=== PATIENT | female | born 1970 | race Caucasian/White ===

== ENCOUNTER 2022-02-23 13:27 | Emergency (ER) | payer OTHER, SELFPAY ==
--- NOTE | ~2022-02-23 | XR_ITS ---
EXAMINATION:XR foot RT 2V VIEWS ACQUIRED: Frontal lateral and oblique CLINICAL INFORMATION: Crush injury COMPARISON: None available at the time of this dictation. FINDINGS: There is no evidence of acute fracture or dislocation. Intertarsal, tarsometatarsal, metatarsophalangeal and interphalangeal joints are intact. Surrounding soft tissues is normal. , There are no calcaneal spurs. XR/XR foot RT 2V IMPRESSION: No fracture or dislocation.
[2022-02-23 15:24] VITALS: BP 149/70; PULSE 63; RESP 18; TEMP 36.7; O2SAT 99; BMI 30.9
--- NOTE | 2022-02-23 15:28 | ED.WOUNDLAC ---
HPI - Wound/Laceration General Chief Complaint: Wound/Laceration <Sascha Yanez MD - Last Filed: 02/23/22 15:29> Stated Complaint: r toe inj <Sascha Yanez MD - Last Filed: 02/23/22 15:29> Time Seen by Provider: 02/23/22 17:27 <Sascha Yanez MD - Last Filed: 02/23/22 15:29> Source: patient <ROMELIA Alvarado - Last Filed: 02/23/22 18:30> Mode of arrival: ambulatory <ROMELIA Alvarado - Last Filed: 02/23/22 18:30> Limitations: no limitations <ROMELIA Alvarado - Last Filed: 02/23/22 18:30> History of Present Illness HPI narrative: Pt is an otherwise healthy 51 year old female who presents to the ED for evaluation of a R 1st toe injury and toe pain. She states that she was moving a couch earlier today when she dropped it directly onto her right 1st toe. She currently has pain over her nail that radiates into her toe. She cleaned the toe and applied a homemade pressure dressing. She denies numbness/tingling, parenthesias, and an inability to bear weight. She denies any other injuries or concerns at this time. She reports an UTD tetanus vaccine. <ROMELIA Alvarado - Last Filed: 02/23/22 18:30> Onset (ago): hour(s) (6) <ROMELIA Alvarado - Last Filed: 02/23/22 18:30> Extremity Location: right: foot <ROMELIA Alvarado - Last Filed: 02/23/22 18:30> Body four view annotation: 1. Draining subungual hematoma <Sascha Yanez MD - Last Filed: 02/23/22 15:29> 1. Draining subungual hematoma <ROMELIA Alvarado - Last Filed: 02/23/22 18:30> Place: home <ROMELIA Alvarado - Last Filed: 02/23/22 18:30> Patient tetanus UTD: Yes <ROMELIA Alvarado - Last Filed: 02/23/22 18:30> Context: accidental and crush injury <ROMELIA Alvarado - Last Filed: 02/23/22 18:30> Associated symptoms: pain <ROMELIA Alvarado - Last Filed: 02/23/22 18:30> Treatments prior to arrival: bandage <ROMELIA Alvarado - Last Filed: 02/23/22 18:30> Related Data Home Medications: Previous Rx's Medication Instructions Recorded cephalexin 500 mg capsule 500 mg PO Q6H 7 days #28 caps 02/23/22 ibuprofen 800 mg tablet 800 mg PO Q8H PRN pain #14 tabs 02/23/22 tramadol 50 mg tablet 50 mg PO Q8H PRN pain #14 tabs 02/23/22 <Sascha Yanez MD - Last Filed: 02/23/22 15:29> Allergies/Adverse Reactions: Allergies Allergy/AdvReac Type Severity Reaction Status Date / Time shellfish derived Allergy Mild HIVES Unverified 01/04/20 15:55 [SHELLFISH DERIVED] <Sascha Yanez MD - Last Filed: 02/23/22 15:29> Review of Systems Review of Systems: Constitutional : No Fever, No Chills, Cardiovascular : No Chest Pain, No SOB Respiratory : No Dyspnea Gastrointestinal : No abdominal pain Musculoskeletal : No Joint Swelling Skin : positive skin laceration, No Foreign bodies, No rash, No surrounding erythema Neuro : No Weakness, No Numbness/tingling Psych : No SI/HI/thoughts of self injury <ROMELIA Alvarado - Last Filed: 02/23/22 18:30> Yes all other systems are reviewed and are negative <ROMELIA Alvarado - Last Filed: 02/23/22 18:30> [facility] Past Medical History Attestation statement: The following information was validated with the patient. <ROMELIA Alvarado - Last Filed: 02/23/22 18:30> Source: old records reviewed, obtained from family and nursing notes reviewed <ROMELIA Alvarado - Last Filed: 02/23/22 18:30> Social History Social History: Social History Advance Directives: No Advance Directives Information Provided: No <Sascha Yanez MD - Last Filed: 02/23/22 15:29> Physical Exam Vital Signs: Vital Signs: Last Vital Signs Temp 98.0 F 02/23/22 15:24 Pulse 63 02/23/22 15:24 Resp 18 02/23/22 15:24 BP 149/70 H 02/23/22 15:24 Pulse Ox 99 02/23/22 15:24 O2 Del Method 02/23/22 15:24 BMI result Body Mass Index 30.9 <Sascha Yanez MD - Last Filed: 02/23/22 15:29> Vital Signs: Last Vital Signs Temp 98.0 F 02/23/22 15:24 Pulse 63 02/23/22 15:24 Resp 18 02/23/22 15:24 BP 149/70 H 02/23/22 15:24 Pulse Ox 99 02/23/22 15:24 O2 Del Method 02/23/22 15:24 BMI result Body Mass Index 30.9 vital signs have been reviewed as normal and appeared to be correct. Blood pressure normal Heart rate normal. Respiration rate normal. Temperature normal. Oxygen saturation normal. <ROMELIA Alvarado - Last Filed: 02/23/22 18:30> Appearance: Alert. Oriented X3. No acute distress. Head: Normal external exam. Normocephalic. Atraumatic. Eyes: PERRLA. EOMI. Conjunctiva and sclera normal. Eyelids normal. ENT: Pharynx normal. Uvula midline. Moist mucous membranes. Neck: Normal inspection. Neck supple. FROM. CVS: Normal heart rate and rhythm. Respiratory: No respiratory distress. Painless inspiration. Skin: Skin warm and dry. Normal skin color. Normal skin turgor. No rashes/lesions/lacerations noted. Extremities: Subungual hematoma that has drained present. Right 1st digit nailbed with linear separation on the lateral portion, remains intact to digit. Tenderness to palpation over the right 1st digit nailbed. No lower extremity edema. Extremities exhibit normal range of motion. Neuro: Oriented X 3. No motor deficit. No sensory deficit. Reflexes normal. Normal steady gait. No focal neuro deficits noted. Vascular: + 2 radial pulses/+ 2 distal pedal pulses/+2 dorsalis pedis b/l. Normal cap refill. No cyanosis noted to upper extremity nails and lower extremity toes nails. <ROMELIA Alvarado - Last Filed: 02/23/22 18:30> Course Course Course Narrative: Pt is an otherwise healthy 51 year old female who presents to the ED for evaluation of a R 1st toe injury and toe pain. VSS. R 1st foot digit NVI with presence of draining subungal hematoma. Significant tenderness to palpation to the digit. Washed injured digit with saline and betadine. After cleaning, the hematoma was evaluated and appeared to have already drained therefore further draining was not required. Bacitracin was placed over the nailbed and wrapped with non adhesive dressing and gauze. Discussed keeping the area covered for 24-48 hours and applying bacitracin for infection ppx. Prescription for keflex given for infection ppx. Prescriptions for ibuprofen and tramadol given prn for pain. Discussed plan with pt and advised follow up with PCP in 2-3 days. Pt verbalizes and agrees to plan. <ROMELIA Alvarado - Last Filed: 02/23/22 18:30> Reevaluation(s) Reevaluation #1: split her toe open when she dropped a cough on it <Sascha Ynaez MD - Last Filed: 02/23/22 15:29> Time: 15:29 <Sascha Yanez MD - Last Filed: 02/23/22 15:29> 15:29 <ROMELIA Alvarado - Last Filed: 02/23/22 18:30> MDM - Wound/Laceration Medical Records Attestation: I reviewed the patient's medical records. <ROMELIA Alvarado - Last Filed: 02/23/22 18:30> Imaging Data Right toe x-ray: Attestation: I personally reviewed and interpreted this imaging study as follows: <ROMELIA Alvarado - Last Filed: 02/23/22 18:30> Radiologist's impression: FINDINGS:? There is no evidence of acute fracture or dislocation. Intertarsal, tarsometatarsal, metatarsophalangeal and interphalangeal joints are intact. Surrounding soft tissues is normal. , There are no calcaneal spurs. XR/XR foot RT 2V IMPRESSION: No fracture or dislocation. <ROMELIA Alvarado - Last Filed: 02/23/22 18:30> Discharge Plan Discharge Clinical Impression: Subungual hematoma, Sprain of great toe, right, Traumatic ecchymosis of toe of right foot <Sascha Yanez MD - Last Filed: 02/23/22 15:29> Patient Disposition: Home, Self-Care <Sascha Yanez MD - Last Filed: 02/23/22 15:29> Instructions: Subungual Hematoma (ED), Foot Sprain (ED) <Sascha Yanez MD - Last Filed: 02/23/22 15:29> Prescriptions: New ibuprofen 800 mg tablet 800 mg PO Q8H PRN (Reason: pain) Qty: 14 0RF tramadol 50 mg tablet 50 mg PO Q8H PRN (Reason: pain) Qty: 14 0RF Rx Instructions: May partially fill upon patient request cephalexin 500 mg capsule 500 mg PO Q6H 7 Days Qty: 28 0RF <Sascha Yanez MD - Last Filed: 02/23/22 15:29> Referrals: Physician,Unknown J [Primary Care Provider] - (your pcp) <Sascha Yanez MD - Last Filed: 02/23/22 15:29>
== END 2022-02-23 18:40 | disposition home or self-care (01) ==
PROVIDERS: Emergency Provider Emergency Medicine
DX: S93.501A Unspecified sprain of right great toe, initial encounter (principal); S90.211A Contusion of right great toe with damage to nail, initial encounter; W20.8XXA Other cause of strike by thrown, projected or falling object, initial encounter; Y93.E9 Activity, other interior property and clothing maintenance; Y92.018 Other place in single-family (private) house as the place of occurrence of the external cause; Y99.8 Other external cause status
CPT/HCPCS: 73620; 99283; 99284

== ENCOUNTER 2024-03-13 12:02 | Emergency (ER) | payer OTHER, SELFPAY ==
--- NOTE | ~2024-03-13 | US_ITS ---
EXAMINATION: US THYROID CLINICAL INFORMATION: Right neck fullness. COMPARISON: None available. TECHNIQUE: Linear transducer parsons-scale and color Doppler examination with attention to the region of the right submandibular/submental region. FINDINGS: Small, nonpathologic lymph nodes is seen within the right level 2 cervical chain. Right submandibular gland is homogeneous with mild central ductal dilatation and edema. Left-sided mandibular gland is unremarkable. US/US soft tiss head and/or neck IMPRESSION: Mild edema and ductal dilatation of the right submandibular gland. No obstructing stone is seen. Electronically signed by: Juancarlos Ramirez MD 03/13/2024 10:05 PM EST
--- NOTE | ~2024-03-13 | CT_ITS ---
EXAMINATION: CT SOFT TISSUE NECK WITH CONTRAST CLINICAL INFORMATION: Right-sided neck swelling COMPARISON: None available. TECHNIQUE: Following the intravenous administration of 60 mL of Omnipaque 350 intravenous contrast, helical imaging was performed in the axial plane with generation of coronal and sagittal reformatted images. This CT examination was performed using dose optimization techniques as appropriate, variously including the following: *Automated exposure control *Adjustment of mA and/or kV according to patient size (this includes techniques or standardized protocols for targeted exams where dose is matched to indication/reason for exam; i.e. extremities or head) *Use of iterative reconstruction technique DLP: 845 mGy-cm FINDINGS: There is no neck mass. No fluid collection or inflammation. Fat planes throughout the neck are normal. There is a 3 to 4 mm hypodensity in the midpole of the right lobe of thyroid. No follow-up imaging recommended. Submandibular glands and the parotid glands are normal. Normal enhancement of the vasculature. No abnormal enhancing lesion. Partially visualized intracranial structures, orbits and paranasal sinuses are unremarkable. Multilevel degenerative spondylosis spine. No acute osseous abnormality. Lung apices normally aerated. Superior mediastinum is unremarkable. No axillary mass. CT/CT soft tissue neck w IV con IMPRESSION: 1. No acute abnormality CT scan neck. No neck mass. No fluid collection or inflammation. 2. There is a 3 to 4 mm hypodensity in the midpole of the right lobe of thyroid. No follow-up imaging recommended. Electronically signed by: Emmett De Leon MD 03/13/2024 04:09 PM VIVIANA NAVARRO
[2024-03-13 12:08] VITALS: BP 157/92; PULSE 82; RESP 18; TEMP 36.8; O2SAT 100; BMI 30.4
--- NOTE | 2024-03-13 12:09 | ED_ITS ---
HPI - General Adult General Chief complaint: Allergic Reaction Stated complaint: Swollen Face Throat ?Allergic Rx Time Seen by Provider: 03/13/24 12:17 Source: patient Mode of arrival: ambulatory Limitations: no limitations History of Present Illness ED Provider: Dr. Annelise Huddleston HPI narrative: Patient comes to the emergency room complaining of a new swelling to the right side of the neck. Patient states that earlier today when she looked at herself in the mirror, she look fine. Then proceeded to eat breakfast. Patient ate ham and eggs sandwich which she usually does. Patient then noted that she had a lump in the some mandibular aspect right side of the neck. Patient states that she has no chest pain, no difficulty breathing, no difficulty swallowing, painless, denies rash or itchiness. Patient denies any recent URI infections, no cough, denies fever chills. Related Data Previous Rx's ?Medication ?Instructions ?Recorded cephalexin 500 mg capsule 500 mg PO Q6H 7 days #28 caps 02/23/22 ibuprofen 800 mg tablet 800 mg PO Q8H PRN pain #14 tabs 02/23/22 tramadol 50 mg tablet 50 mg PO Q8H PRN pain #14 tabs 02/23/22 Allergies Allergy/AdvReac Type Severity Reaction Status Date / Time shellfish derived Allergy Mild HIVES Verified 03/13/24 12:10 [SHELLFISH DERIVED] Review of Systems 2 Review of Systems: Constitutional : No Weight loss, No Fever, No Chills, No Night Sweats, No Fatigue, No Malaise ENT/Mouth : complaining of a Painless lump on the right side of the neck submandibular aspect. No Hearing loss, No Ear Pain, No Nasal Congestion, No Sinus Pain, No Hoarseness, No sore throat, No Rhinorrhea, No Swallowing Difficulty Eyes: No Eye Pain, No Swelling, No Redness, No Foreign Body, No Discharge, No Vision Changes Cardiovascular : No Chest Pain, No SOB, No Dyspnea on Exertion, No Orthopnea, No Edema, No Palpitations Respiratory : No Cough, No Sputum, No Wheezing, No Smoke Exposure, No Dyspnea Gastrointestinal : No Nausea, No Vomiting, No Diarrhea, No Constipation, No abdominal Pain, No Hematochezia, No Melena Genitourinary : no irregular bleeding, No Dysuria, No Urinary Frequency, No Hematuria, No Urinary Incontinence, No Urgency, No Flank Pain, No Urinary Flow Changes, No Hesitancy Musculoskeletal : No joint pain, No Myalgias, No Joint Swelling Skin : No Skin Lesions, No rash Neuro : No Weakness, No Numbness, No Paresthesias, No Loss of Consciousness, No Dizziness, No Headache Psych : No Anxiety/Panic, No Depression, No SI/HI/AH/VH, No Social Issues, Heme/Lymph: No Bruising, No Bleeding,No Lymphadenopathy Endocrine : No Polyuria, No Polydipsia, No Temperature Intolerance [facility] Past Medical History Medical History (Updated 03/13/24 @ 20:13 by Annelise Huddleston MD) Hyperlipidemia Asthma Social History Social History Unable to assess alcohol history related to: Unknown Smoked in Last 30 Days: No Use of substances other than those prescribed or required for medical reasons: Unknown Advance Directives: No Advance Directives Information Provided: Yes Do you have a plan to hurt others: No Plan Physical Exam ED Vital Signs: Vital Signs - 24 hr 03/13/24 12:08 03/13/24 17:52 03/13/24 20:08 Temperature 98.2 F 97.9 F 98.1 F Pulse Rate 82 66 65 Respiratory Rate 18 20 16 Blood Pressure 157/92 H 117/68 132/68 Pulse Oximetry 100 97 99 Oxygen Delivery Method Room Air Room Air Room Air BMI result Body Mass Index 30.4 Const Other: Appearance: Alert. Oriented X3. No acute distress. Eyes: Pupils equal, round and reactive to light. ENT: Pharynx normal. there is a 3 cm x 3 cm swelling in the submandibular aspect of the right side of the neck, palpated externally. No oropharyngeal angioedema, swallowing normal, handling secretions normal Neck: Normal inspection. Neck supple. No lymph nodes noted. No crepitus CVS: Normal heart rate and rhythm. Pulses normal. Normal S1 and S2 Respiratory: No respiratory distress. Breath sounds normal. No Wheezing. No rales Abdomen: Soft and nontender. No rigidity. No distention. Skin: Skin warm and dry. Normal skin color. Normal skin turgor. no urticaria Extremities: No lower extremity edema. No Lacerations. No Rash Neuro: Oriented X 3. No motor deficit. No sensory deficit. Moving all extremities. No slurred speech. CN 2 through 12 grossly intact Psych: calm, cooperative, normal affect Course Course Course Narrative: RME performed by Ayah Tovar PA-C. Patient is a 53 year old assigned female at presenting to the emergency department with right sided facial swelling after ingesting a ham and egg sandwich. Patient states 30 minutes prior to arrival she was eating a ham and egg sandwich. Shortly after she stopped eating it, she noticed the right side of her face began to swell. Detailed physical exam and review of systems are deferred to the nurse clinician. process improvement engineer aware. Medications Administered Discontinued Medications Generic Name Dose Route Start Last Admin Trade Name Freq PRN Reason Stop Dose Admin Diphenhydramine HCl 50 mg 03/13/24 12:28 03/13/24 12:33 Diphenhydramine Hcl 50 Mg/Ml Vial IVPUSH 03/13/24 12:29 50 mg ONCE ONE Administration Famotidine 20 mg 03/13/24 12:28 03/13/24 12:33 Famotidine/Pf 20 Mg/2 Ml Vial IVPUSH 03/13/24 12:29 20 mg ONCE ONE Administration Iohexol 60 ml 03/13/24 13:54 03/13/24 13:55 Iohexol 350 Mg/Ml 75 Ml Infus..Btl IV 03/13/24 13:55 60 ml ONCE ONE Administration Methylprednisolone Sodium Succinate 125 mg 03/13/24 12:20 03/13/24 12:33 Methylprednisolone Sod Succ 125 Mg/2 Ml Vial IVPUSH 03/13/24 12:21 125 mg ONCE ONE Administration Medical Decision Making Medical Decision Making MDM Narrative: patient's presentation does not seem to be an allergic reaction. Due to the new onset swelling which patient reports, patient will given IV Solu-Medrol, diphenhydramine and Pepcid. However, the swelling is likely and lymph node. Seems that he grew fast, maybe the patient did not notice earlier today? CT scan of the soft tissue of the neck pending My interpretation of labs: Patient's white blood cell count 11.9, chemistry within normal limits -patient states that after the dose of steroids, the swelling in the right side of the neck started decreasing. However, after taking some water, the size of the lump increase again. -on the CT scan, I do not see the swelling present. The radiology report also shows no abnormality. However, on physical exam it is clearly present. We will obtain an ultrasound of the soft tissue of the neck -patient remained stable, no difficulty breathing or swallowing. Swelling on the submental right side of the neck still pending. -ultrasound of the neck has been done but the results are not back yet. Patient states that she started of waiting and wants to be discharged. Discussed with the patient that we still do not know exactly why she has the swelling on the neck. Patient has no trouble breathing, no trouble swallowing. Patient requesting to be discharged. Differential Diagnosis Differential Diagnoses: The differential diagnosis associated with the presentation includes (Swollen lymph node, parotitis, thyroiditis) Admission/Observation Consideration of admission/observation: Escalation of care including admission/observation considered (Admission/observation was considered, however patient will likely be discharged) Lab Data MDM Lab Attestation statement: I reviewed the patient's lab results. 03/13/24 12:34 03/13/24 12:34 Labs: Lab Results 03/13/24 Range/Units 12:34 WBC 11.9 H (4.8-10.8) X10*3/uL RBC 4.33 (4.20-5.50) X10*6/uL Hgb 13.2 (12.0-16.0) g/dl Hct 39.4 (37.0-47.0) % MCV 91.0 (80.0-98.0) fL MCH 30.5 (27.0-33.0) pg MCHC 33.5 (31.0-35.0) g/dl RDW 14.4 (11.0-16.0) % Plt Count 87 L (160-400) X10*3/uL MPV 12.0 (9.4-12.3) fL Immature Gran % (Auto) 0.5 H (0.0-0.4) % Neut % (Auto) 70.6 (45-73) % Lymph % (Auto) 18.5 L (20-40) % [place] % (Auto) 5.6 (2-11) % Eos % (Auto) 3.9 (0-4) % Baso % (Auto) 0.9 (0-2) % Lymph # (Auto) 2.2 (1.2-4.9) X10*3/uL [place] # (Auto) 0.7 (0.1-1.2) X10*3/uL Eos # (Auto) 0.5 H (0.0-0.4) X10*3/uL Baso # (Auto) 0.1 (0.0-0.2) X10*3/uL Abs Immat Gran (auto) 0.06 H (0.00-0.03) X10*3/uL Absolute Neuts (auto) 8.4 H (2.0-8.3) x10*3/uL Absolute Nucleated RBC 0.000 (0.0-0.012) X10*3/uL Nucleated RBC % (auto) 0.0 (0.0-0.2) /100WBC Sodium 136 (135-145) mmol/L Potassium 4.2 (3.3-5.1) mmol/L Chloride 101 (96-108) mmol/L Carbon Dioxide 28 (22-29) mmol/L Anion Gap 11 L (12-20) BUN 13 (9-16) mg/dL Creatinine 0.81 (0.5-1.4) mg/dL Estim Creat Clear Calc 76.2 Estimated GFR > 60 Random Glucose 118 H (60-115) mg/dL Calcium 9.0 (8.4-10.2) mg/dL Total Bilirubin 0.5 (0.0-1.0) mg/dL Direct Bilirubin 0.2 (0.0-0.5) mg/dL AST 23 (5-31) U/L ALT 29 (0-31) U/L Alkaline Phosphatase 103 (39-117) U/L Total Protein 7.3 (6.5-8.0) g/dL Albumin 4.1 (3.5-5.0) g/dL Independent Interpretation I performed an independent interpretation of an: CT Scan Interpretation: FINDINGS: There is no neck mass. No fluid collection or inflammation. Fat planes throughout the neck are normal. There is a 3 to 4 mm hypodensity in the midpole of the right lobe of thyroid. No follow-up imaging recommended. Submandibular glands and the parotid glands are normal. Normal enhancement of the vasculature. No abnormal enhancing lesion. Partially visualized intracranial structures, orbits and paranasal sinuses are unremarkable. Multilevel degenerative spondylosis spine. No acute osseous abnormality. Lung apices normally aerated. Superior mediastinum is unremarkable. No axillary mass. CT/CT soft tissue neck w IV con IMPRESSION: 1. No acute abnormality CT scan neck. No neck mass. No fluid collection or inflammation. 2. There is a 3 to 4 mm hypodensity in the midpole of the right lobe of thyroid. No follow-up imaging recommended. Critical Care Time Critical Care Time Critical Care Time: Yes Total Critical Care Time: 60 Attestation: I have personally provided critical care time. Time includes review of lab data, radiology results, discussion with consultants, and monitoring for potential decompensation. Intervention performed as documented. Discharge Plan Discharge Clinical Impression: Localized swelling, mass or lump of neck Patient Disposition: Home, Self-Care Additional Instructions: Please follow-up with your primary care physician tomorrow. If you have any worsening or new symptoms, please return to the emergency room or call 911 Prescriptions: No Action ibuprofen 800 mg tablet 800 mg PO Q8H PRN (Reason: pain) Qty: 14 0RF tramadol 50 mg tablet 50 mg PO Q8H PRN (Reason: pain) Qty: 14 0RF Rx Instructions: May partially fill upon patient request cephalexin 500 mg capsule 500 mg PO Q6H 7 Days Qty: 28 0RF Print Language: Turkish
[2024-03-13] MEDS: diphenhydrAMINE HCL 50 MG/ML VIAL IVPUSH (12:33)
[2024-03-13] MEDS: methylPREDNISolone Sod Succ 125 MG/2 ML VIAL IVPUSH (12:33)
[2024-03-13] MEDS: Famotidine/PF 20 MG/2 ML VIAL IVPUSH (12:33)
[2024-03-13 12:37] LABS: MANUAL DIFF FLAG NO
[2024-03-13 12:39] LABS: Basophils Absolute Auto 0.1 X10*3/uL (0.0-0.2); Basophils Percent Auto 0.9 % (0-2); Eosinophils Absolute Auto 0.5 X10*3/uL (0.0-0.4); Eosinophils Percent Auto 3.9 % (0-4); Hematocrit 39.4 % (37.0-47.0); Hemoglobin 13.2 g/dl (12.0-16.0); Imm Gran Abs Auto 0.06 X10*3/uL (0.00-0.03); Imm Gran Pct Auto 0.5 % (0.0-0.4); Lymphocytes Absolute Auto 2.2 X10*3/uL (1.2-4.9); Lymphocytes Percent Auto 18.5 % (20-40); Mean Corpuscular HGB Conc 33.5 g/dl (31.0-35.0); Mean Corpuscular Hemoglobin 30.5 pg (27.0-33.0); Monocytes Absolute Auto 0.7 X10*3/uL (0.1-1.2); Monocytes Percent Auto 5.6 % (2-11); Neutrophils Absolute Auto 8.4 x10*3/uL (2.0-8.3); Neutrophils Percent Auto 70.6 % (45-73); Red Blood Count 4.33 X10*6/uL (4.20-5.50); Red Cell Distribution Width 14.4 % (11.0-16.0); White Blood Count 11.9 X10*3/uL (4.8-10.8)
[2024-03-13 12:54] LABS: Alanine Aminotransferase 29 U/L (0-31); Albumin Level 4.1 g/dL (3.5-5.0); Alkaline Phosphatase 103 U/L (39-117); Anion Gap 11 (12-20); Aspartate Amino Transferase 23 U/L (5-31); Bilirubin Direct 0.2 mg/dL (0.0-0.5); Bilirubin Total 0.5 mg/dL (0.0-1.0); Blood Urea Nitrogen 13 mg/dL (9-16); Carbon Dioxide 28 mmol/L (22-29); Chloride 101 mmol/L (96-108); Creatinine Clr Calc Pharmacy 76.2; Estimated Glomerular Filt Rate > 60; Glucose Random 118 mg/dL (60-115); Potassium 4.2 mmol/L (3.3-5.1); Sodium 136 mmol/L (135-145); Total Protein 7.3 g/dL (6.5-8.0)
[2024-03-13 13:22] LABS: Platelet Count 87 X10*3/uL (160-400)
[2024-03-13] MEDS: iohexoL 350 MG/ML 75 ML INFUS..BTL 60 ML IV (13:55)
[2024-03-13 17:52] VITALS: BP 117/68; PULSE 66; RESP 20; TEMP 36.6; O2SAT 97
--- NOTE | 2024-03-13 19:08 | PC.NURSE ---
nurse called to room- pt demanding to go home. advised awaiting imaging results. pt stated I have been here too long MD mejia notified via [employer]
[2024-03-13 20:08] VITALS: BP 132/68; PULSE 65; RESP 16; TEMP 36.7; O2SAT 99
[2024-03-13 20:25] VITALS: BP 132/68; PULSE 65; RESP 16; TEMP 36.7; O2SAT 99
== END 2024-03-13 20:26 | disposition home or self-care (01) ==
PROVIDERS: Emergency Provider Emergency Medicine; PCP Internal Medicine
DX: R22.1 Localized swelling, mass and lump, neck (principal); E78.5 Hyperlipidemia, unspecified; J45.909 Unspecified asthma, uncomplicated
CPT/HCPCS: 36415; 70491; 76536; 80048; 80076; 85025; 96374; 96375; 99284; J1200; J2919; Q9967